=== PATIENT | female | born 1965 | race Caucasian/White ===

== ENCOUNTER 2017-02-14 17:38 | Emergency (ER) | payer SELFPAY ==
[2017-02-14] MEDS ORDERED: NITROGLYCERIN 0.4 MG 25 EA TAB SL ONE (18:12)
[2017-02-14] MEDS ORDERED: ASPIRIN TABLET 325 MG TAB PO ONE (18:12)
[2017-02-14] MEDS ORDERED: SODIUM CHLORIDE 0.9% (FLUSH) 10 ML SYG IV PRN (18:12)
[2017-02-14] MEDS ORDERED: ONDANSETRON INJ 4 MG/2 ML VIAL IV ONE (18:12)
[2017-02-14] MEDS ORDERED: ASPIRIN (CHEWABLE) 81 MG TAB PO ONE (18:18)
--- NOTE | 2017-02-14 18:24 | RAD ---
EXAM: Single view chest. INDICATION: Chest pain. COMPARISON: Chest x-ray: None. FINDINGS: Cardiac silhouette: Unremarkable. Conchita: Unremarkable. Lobar consolidation: None. Pleural effusion: None. Pneumothorax: None. Other: None. Bones: Unremarkable. Other: None. IMPRESSION: 1. No acute cardiopulmonary process. Electronically signed by: Agustín Valente MD 02/14/2017 6:23 PM CDT Workstation: [id number]
[2017-02-14 18:25] VITALS: TEMP 98.5
--- NOTE | 2017-02-14 19:34 | ED.PDOC ---
History of Present Illness - General Chief Complaint: Cardiovascular Problem Stated Complaint: chest pain Time Seen by Provider: 02/14/17 18:12 Source: patient Exam Limitations: no limitations - History of Present Illness Initial Comments: Dalila Torres 51 y/o female stated her symptoms started as sharp pains on her left shoulder yesterday afternoon then eased off at about 0200h had pressure on her chest radiating to shoulder and her shoulder girdle then eased off after 3 hours but it had been constant and not getting better decided to come here. Timing/Duration: 24 hours Severity/Quality: moderate Location: central Chest Pain Radiation: shoulders, back Activities at Onset: none Prior Chest Pain/Cardiac Workup: no prior chest pain, no prior cardiac workup Improving Factors: nothing Worsening Factors: nothing Nitro Today/Relief: 0.4 mg x 2, provided by ED Aspirin Treatment Today: 81 mg x 4 Associated Symptoms: diaphoresis Allergies/Adverse Reactions: Allergies NO KNOWN ALLERGY Allergy (Verified 02/14/17 18:25) Home Medications: Ambulatory Orders Acetamin W/Cod #3 Tab [Tylenol #3 Tab] 1 ea PO Q4-6H PRN #12 tab 11/24/15 Clindamycin HCl 300 mg PO TID #30 cap 11/24/15 Fluticasone Propionate (Nasal) [Flonase Allergy Relief Ch] 50 mcg NA DAILY #1 spr 11/24/15 Sertraline HCl [Zoloft] 100 mg PO DAILY 11/24/15 cloNAZepam [KlonoPIN] 0.25 mg PO PRN PRN 11/24/15 Review of Systems - Review of Systems Constitutional: States: no symptoms reported EENTM: States: no symptoms reported Respiratory: States: no symptoms reported Cardiology: States: see HPI Gastrointestinal/Abdominal: States: no symptoms reported Genitourinary: States: no symptoms reported Musculoskeletal: States: no symptoms reported Skin: States: no symptoms reported Neurological: States: emotional problems Endocrine: States: no symptoms reported Hematologic/Lymphatic: States: no symptoms reported Past Medical History (General) - Patient Medical History Hx Stroke: No Hx of COPD: No Hx Cardiac Disorders: No Hx Congestive Heart Failure: No Hx Hypertension: Yes Hx Diabetes: No - Pt states she has been monitoring her blood sugar and it has been high. Hx Cancer: No Hx MRSA: No Surgical History: other - knee,vocal cords,wrist,left breast biopsy - Vaccination History Hx Tetanus, Diphtheria Vaccination: No Hx Influenza Vaccination: No Hx Pneumococcal Vaccination: No - Social History Hx Tobacco Use: Yes Years Tobacco Use: 20 Cigarettes Packs Per Day: 10 Hx Alcohol Use: No Hx Substance Use: No Hx Substance Use Treatment: No Hx Depression: No - Activities of Daily Living Hospice Agency (if applicable):: None - Female History Patient is a Female of Child Bearing Age (10 -59 yrs old): Yes Patient : No Family Medical History - Family History Mother Living Status: Still Living Hx Family Stroke: Yes Hx Cardiac Disease: Yes - mom Hx Family Cancer: Yes - lung- dad;bone;uterine- mom Physical Exam - Physical Exam General Appearance: Alert, Anxious, No apparent distress Eyes, Ears, Nose, Throat Exam: PERRL/EOMI, normal ENT inspection Neck: non-tender, full range of motion, supple Respiratory: chest non-tender, lungs clear, normal breath sounds Cardiovascular/Chest: normal peripheral pulses, regular rate, rhythm, no murmur Peripheral Pulses: radial,right: 1+, radial,left: 1+ Gastrointestinal/Abdominal: normal bowel sounds, non tender, soft Extremity: non-tender, normal inspection, no calf tenderness Neurologic: alert, oriented x 3 Skin Exam: normal color, warm/dry Lymphatic: no adenopathy Progress - Progress Progress: 02/14/17 19:43 Vital Signs - 8 hr 02/14/17 02/14/17 02/14/17 17:45 18:26 19:02 Temperature 98.5 F Pulse Rate [ 68 68 63 pulse ox] Respiratory 18 18 Rate Blood Pressure 142/91 139/76 [Right Arm] O2 Sat by Pulse 96 97 Oximetry Laboratory Tests 02/14/17 02/14/17 18:00 18:00 WBC 10.8 RBC 5.53 H Hgb 15.6 Hct 46.1 MCV 83.3 MCH 28.2 MCHC 34.0 RDW 14.2 Plt Count 207 MPV 8.7 Absolute Neuts (auto) 6.10 Absolute Lymphs (auto) 3.50 H Absolute Monos (auto) 0.70 Absolute Eos (auto) 0.30 Absolute Basos (auto) 0.10 Neutrophils % 56.4 Lymphocytes % 33.0 Monocytes % 6.6 Eosinophils % 3.1 Basophils % 0.9 PT 11.1 INR 0.980 PTT (SP) 32.3 D-Dimer, Quantitative < 230 Sodium 137 Potassium 4.0 Chloride 104 Carbon Dioxide 23 Anion Gap 14.0 BUN 9 Creatinine 0.59 L BUN/Creatinine Ratio 15.3 Random Glucose 140 H Serum Osmolality 274.8 L Calcium 9.0 Magnesium 2.2 Total Bilirubin 0.7 Direct Bilirubin 0.1 Indirect Bilirubin 0.6 AST 47 H ALT 26 Alkaline Phosphatase 74 Creatine Kinase 461 H* CK-MB (CK-2) 85.7 H* CK-MB (CK-2) % 18.59 H Troponin I 2.04 H* B-Natriuretic Peptide 57.0 Serum Total Protein 8.4 H Albumin 4.3 - Results/Orders Results/Orders: Vital Signs - 8 hr 02/14/17 02/14/17 02/14/17 17:45 18:26 19:02 Temperature 98.5 F Pulse Rate [ 68 68 63 pulse ox] Respiratory 18 18 Rate Blood Pressure 142/91 139/76 [Right Arm] O2 Sat by Pulse 96 97 Oximetry 02/14/17 02/14/17 02/14/17 19:10 19:45 20:10 Temperature Pulse Rate [ 61 59 L 63 pulse ox] Respiratory 18 20 18 Rate Blood Pressure 161/85 163/80 159/74 [Right Arm] O2 Sat by Pulse 99 96 95 Oximetry Laboratory Tests 02/14/17 02/14/17 02/14/17 18:00 18:00 20:15 WBC 10.8 RBC 5.53 H Hgb 15.6 Hct 46.1 MCV 83.3 MCH 28.2 MCHC 34.0 RDW 14.2 Plt Count 207 MPV 8.7 Absolute Neuts (auto) 6.10 Absolute Lymphs (auto) 3.50 H Absolute Monos (auto) 0.70 Absolute Eos (auto) 0.30 Absolute Basos (auto) 0.10 Neutrophils % 56.4 Lymphocytes % 33.0 Monocytes % 6.6 Eosinophils % 3.1 Basophils % 0.9 PT 11.1 INR 0.980 PTT (SP) 32.3 D-Dimer, Quantitative < 230 Sodium 137 Potassium 4.0 Chloride 104 Carbon Dioxide 23 Anion Gap 14.0 BUN 9 Creatinine 0.59 L BUN/Creatinine Ratio 15.3 Random Glucose 140 H Serum Osmolality 274.8 L Calcium 9.0 Magnesium 2.2 Total Bilirubin 0.7 Direct Bilirubin 0.1 Indirect Bilirubin 0.6 AST 47 H ALT 26 Alkaline Phosphatase 74 Creatine Kinase 461 H* CK-MB (CK-2) 85.7 H* CK-MB (CK-2) % 18.59 H Troponin I 2.04 H* 2.85 H* B-Natriuretic Peptide 57.0 Serum Total Protein 8.4 H Albumin 4.3 - EKG/XRAY/CT EKG: Sinus, nonspecific ST T wave Chg Comments: heart rate-62 Departure - Departure Clinical Impression: Chest tightness or pressure, NSTEMI (non-ST elevation myocardial infarction) Time of Disposition: 21:04 Disposition: Transfer to Hospital Condition: Fair Departure Forms: Patient Portal Self Enrollment Referrals: José Banuelos MD [Primary Care Provider] - 1-2 Weeks Home Medications: Ambulatory Orders Acetamin W/Cod #3 Tab [Tylenol #3 Tab] 1 ea PO Q4-6H PRN #12 tab 11/24/15 Clindamycin HCl 300 mg PO TID #30 cap 11/24/15 Fluticasone Propionate (Nasal) [Flonase Allergy Relief Ch] 50 mcg NA DAILY #1 spr 11/24/15 Sertraline HCl [Zoloft] 100 mg PO DAILY 11/24/15 cloNAZepam [KlonoPIN] 0.25 mg PO PRN PRN 11/24/15 Transfer to Outside Facility - Transfer Information Accepting Provider:: Dr. Powell Accepting Facility: [facility] Reason for Transfer: catheterization laboratory technician
[2017-02-14] MEDS ORDERED: HEPARIN PREMIX 500 ML ONE (19:40)
[2017-02-14] MEDS ORDERED: HEPARIN PREMIX 25,000 UNITS in PREMIX BAG 1 BAG IVS SCH (19:45)
[2017-02-14] MEDS ORDERED: MORPHINE SULFATE INJ 10 MG/ML VIAL IV ONE (19:45)
[2017-02-14] MEDS ORDERED: SODIUM CHLORIDE 0.9% 1000ML 1,000 ML ONE (19:58)
[2017-02-14] MEDS ORDERED: NITROGLYCERIN/D5W IV 50,000 MCG in PREMIX BOTTLE 1 BOTTLE IVS SCH (20:00)
[2017-02-14] MEDS ORDERED: NITROGLYCERIN/D5W IV 250 ML IVS ONE (20:06)
[2017-02-14] MEDS ORDERED: SODIUM CHLORIDE 0.9% 1000ML 1,000 ML IVS PRN (20:17)
[2017-02-14 22:19] VITALS: BP 124/84; O2SAT 95
== END 2017-02-14 22:19 | disposition short-term general hospital (02) ==
LOC: ER 17:38
DX: I21.4 Non-ST elevation (NSTEMI) myocardial infarction (principal); I10 Essential (primary) hypertension; Z87.891 Personal history of nicotine dependence; Z79.899 Other long term (current) drug therapy
CPT/HCPCS: 36415; 71010; 80048; 80076; 82550; 82553; 83880; 84484; 85025; 85379; 85610; 85730; 93005; J1644; J2270; J2405; J7030

== ENCOUNTER 2017-02-24 11:08 | Emergency (ER) | payer SELFPAY ==
[2017-02-24] MEDS ORDERED: SODIUM CHLORIDE 0.9% (FLUSH) 10 ML SYG IV PRN (11:15)
[2017-02-24] MEDS ORDERED: ASPIRIN (CHEWABLE) 81 MG TAB PO ONE (11:15)
[2017-02-24] MEDS ORDERED: NITROGLYCERIN 0.4 MG 25 EA TAB SL ONE (11:17)
[2017-02-24] MEDS: NITROGLYCERIN 0.4 MG 25 EA TAB SL ONE ×2 (11:22→11:28)
--- NOTE | 2017-02-24 11:25 | ED.PDOC ---
History of Present Illness - General Chief Complaint: Chest Pain/DC Stated Complaint: chest pain post stents 1 week Time Seen by Provider: 02/24/17 11:20 Source: patient, RN notes reviewed, Vital Signs reviewed Exam Limitations: no limitations - History of Present Illness Initial Comments: Patient presents to the ER from the clinic with L sided chest pain. Pain began when she got very upset with the doctor. + SOB, nausea and diaphoresis. 1 week ago she was @ [facility] and had 4 coronary stents placed. Timing/Duration: 1/2 hour Severity/Quality: moderate, pressure Location: other - L upper chest and shoulder Chest Pain Radiation: no radiation Prior Chest Pain/Cardiac Workup: cardiac cath, heart attack, other - coronary stents X 4 Improving Factors: nothing Worsening Factors: nothing Aspirin Treatment Today: 81 mg x 1 - She is on a blood thinner in addition to the ASA, no additional aspirin given Associated Symptoms: diaphoresis, nausea/vomiting, shortness of breath Allergies/Adverse Reactions: Allergies NO KNOWN ALLERGY Allergy (Verified 02/14/17 18:25) Home Medications: Ambulatory Orders Sertraline HCl [Zoloft] 100 mg PO DAILY 11/24/15 Isosorbide Mononitrate [Imdur] 30 mg PO QPM #30 tab 02/24/17 Review of Systems - Review of Systems Constitutional: States: diaphoresis. Denies: chills, fever EENTM: States: no symptoms reported Respiratory: States: short of breath. Denies: cough Cardiology: States: see HPI, chest pain. Denies: palpitations, syncope Gastrointestinal/Abdominal: States: see HPI, nausea. Denies: abdominal pain, vomiting Musculoskeletal: States: no symptoms reported Skin: States: no symptoms reported Neurological: States: anxiety. Denies: headache, numbness, paresthesia All other Systems: No Change from Baseline Past Medical History (General) - Patient Medical History Hx Stroke: No Hx of COPD: No Hx Cardiac Disorders: No Hx Congestive Heart Failure: No Hx Hypertension: Yes Hx Diabetes: No - Pt states she has been monitoring her blood sugar and it has been high. Hx Cancer: No Hx MRSA: No - Vaccination History Hx Tetanus, Diphtheria Vaccination: No Hx Influenza Vaccination: No Hx Pneumococcal Vaccination: No - Social History Hx Tobacco Use: Yes Hx Alcohol Use: No Hx Substance Use: No Hx Substance Use Treatment: No Hx Depression: No - Female History Patient : No Family Medical History - Family History Mother Living Status: Still Living Hx Family Stroke: Yes Hx Cardiac Disease: Yes - mom Hx Family Cancer: Yes - lung- dad;bone;uterine- mom Physical Exam - Physical Exam General Appearance: Agitated, Anxious, Obese, Well Developed, Well Groomed, Well Hydrated, Well Nourished Neck: supple, normal inspection Respiratory: lungs clear, normal breath sounds, no respiratory distress, no accessory muscle use Cardiovascular/Chest: normal peripheral pulses, regular rate, rhythm, no edema, no gallop, no JVD, no murmur Peripheral Pulses: radial,right: 2+, radial,left: 2+, dorsalis pedis,right: 2+, dorsalis pedis,left: 2+ Gastrointestinal/Abdominal: normal bowel sounds, soft, no organomegaly, tenderness - Mild, diffuse tenderness Extremity: normal inspection Neurologic: alert, normal mood/affect, oriented x 3 Skin Exam: normal color, diaphoresis Progress - Progress Progress: 02/24/17 11:31 After 1 SLNTG pain went from 7-8 to 6/10. Will give a 2nd NTG and Ativan 0.5mg IV. 02/24/17 11:49 Patient c/o severe RAYO after NTG. Pain is 5/10 w/ BP of 100/65. Will hold off on further NTG for now and see if Ativan helps and await cardiac labs. 02/24/17 12:33 Patient is resting comfortably. Reports pain is 3/10. Troponin is 0.13 - ? if residual from recent DC or if new. Awaiting 2nd set of cardiac enzymes and call back from her [employer]. Dr. Sykes - called @ 12:25 02/24/17 15:06 @ [address] Sykes who recommended if 2nd troponin was lower to d/c home on Imdur 30mg Qhs and follow up with her. If 2nd Troponin is more elevated with transfer to hospital in [place]. 2nd set of cardiac labs are all improved including Troponin of 1.1. Will give 1st dose of Imdur 30mg here and d/c home with Rx and instructions to follow up with Dr. Sykes. - Results/Orders Results/Orders: Laboratory Tests 02/24/17 02/24/17 02/24/17 11:15 11:15 14:20 WBC 16.6 H RBC 5.49 H Hgb 15.4 Hct 45.3 MCV 82.4 MCH 28.0 MCHC 34.1 RDW 14.0 Plt Count 335 MPV 8.6 Absolute Neuts (auto) 11.40 H Absolute Lymphs (auto) 3.20 Absolute Monos (auto) 1.20 H Absolute Eos (auto) 0.70 H Absolute Basos (auto) 0.20 H Neutrophils % 68.6 Lymphocytes % 19.0 L Monocytes % 6.9 Eosinophils % 4.3 Basophils % 1.2 Sodium 134 L Potassium 4.3 Chloride 103 Carbon Dioxide 19 L Anion Gap 16.3 BUN 16 Creatinine 0.65 BUN/Creatinine Ratio 24.6 H Random Glucose 139 H Serum Osmolality 271.7 L Calcium 10.2 Total Bilirubin 1.0 AST 31 ALT 28 Alkaline Phosphatase 79 Creatine Kinase 101 84 CK-MB (CK-2) 3.1 3.0 CK-MB (CK-2) % Not Reportable Not Reportable Troponin I 0.13 H* 0.11 H* Serum Total Protein 9.7 H Albumin 4.6 Globulin 5.1 H Albumin/Globulin Ratio 0.9 L - EKG/XRAY/CT EKG: Sinus, nonspecific ST T wave Chg, Unchanged from - 02/14/17 Comments: Rate: 79 XRAY: chest - normal per Radiologist Departure - Departure Clinical Impression: Chest tightness or pressure Headache Qualifiers: Headache type: unspecified Headache chronicity pattern: acute headache Intractability: not intractable Qualified Code(s): R51 - Headache Time of Disposition: 15:10 Disposition: Discharge to Home or Self Care Condition: Good Departure Forms: ED Discharge - Pt. Copy, Patient Portal Self Enrollment Instructions: DI for Chest Pain, DI for Angina Diet: resume usual diet Activity: increase activity as tolerated Referrals: José Banuelos MD [Primary Care Provider] - 1 Week Prescriptions: Isosorbide Mononitrate [Imdur] 30 mg PO QPM #30 tab Home Medications: Ambulatory Orders Sertraline HCl [Zoloft] 100 mg PO DAILY 11/24/15 Isosorbide Mononitrate [Imdur] 30 mg PO QPM #30 tab 02/24/17 Additional Instructions: Follow up with Dr. Sykes, [employer], within a week - [phone]
--- NOTE | 2017-02-24 11:38 | RAD ---
Study: Single Frontal View of the Chest. Indication:chest pain Comparison: February 14, 2017. IMPRESSION: Heart size normal. Lungs clear. No acute osseous abnormality. Electronically signed by: Raakn Garnett MD 02/24/2017 11:37 AM CDT
[2017-02-24] MEDS ORDERED: ISOSORBIDE MONONITRATE (IMDUR) 30 MG TAB PO ONE (15:05)
[2017-02-24 15:55] VITALS: BP 129/77; O2SAT 96
== END 2017-02-24 15:45 | disposition home or self-care (01) ==
LOC: ER 11:08
DX: R07.89 Other chest pain (principal); R51 Headache; I10 Essential (primary) hypertension; Z87.891 Personal history of nicotine dependence; Z79.82 Long term (current) use of aspirin; Z79.01 Long term (current) use of anticoagulants
CPT/HCPCS: 36415; 71010; 80053; 82550; 82553; 84484; 85025; 93005; J2060